=== PATIENT | female | born 1970 | race African-American/Black ===

== ENCOUNTER 2021-07-31 11:09 | Emergency (ER) | payer SELFPAY ==
[~2021-07-31] VITALS: Ht 157.5 cm; Wt 66.0 kg
[2021-07-31] MEDS ORDERED: P50 MT (11:29)
[2021-07-31] MEDS ORDERED: PREDNISONE 20MG TABLET PO ONE (11:30)
[2021-07-31] MEDS ORDERED: FAMOTIDINE 20MG TABLET PO ONE (11:30)
[2021-07-31] MEDS ORDERED: DIPHENHYDRAMINE 50MG CAPSULE PO ONE (11:30)
[2021-07-31] MEDS ORDERED: B50 MT (11:31)
[2021-07-31] MEDS ORDERED: FAMO-287 MT (11:31)
[2021-07-31 11:57] VITALS: BP 111/71
== END 2021-07-31 11:57 | disposition home or self-care (01) ==
LOC: ER 11:09
DX: T78.40XA Allergy, unspecified, initial encounter (principal); Z98.890 Other specified postprocedural states; X58.XXXA Exposure to other specified factors, initial encounter
CPT/HCPCS: 99284; J7512; Q0163